=== PATIENT | female | born 1990 | race Caucasian/White ===

== ENCOUNTER 2019-12-29 21:59 | Emergency (ER) | payer SELFPAY ==
[~2019-12-29] VITALS: Ht 177.8 cm; Wt 120.0 kg
[2019-12-29 22:11] VITALS: BP 136/80
[2019-12-29] MEDS ORDERED: KETOROLAC 30MG/ML VIAL IV STA (23:21)
[2019-12-29] MEDS ORDERED: ONDANSETRON HCL 4MG/2ML INJ IV STA (23:21)
[2019-12-29] MEDS ORDERED: SODIUM CHLORIDE 0.9% 1,000 ML IV ONE (23:21)
[2019-12-30 01:04] LABS: BASOPHILS % 0.1 % (0.0-2.0); HEMATOCRIT. 36.4 % (36.0-48.0); HEMOGLOBIN. 12.1 g/dL (12.0-16.0); LYMPHOCYTES % 19.3 % (20.0-50.0); MEAN CORPUSCULAR HEMOGLOBIN 24.5 pg (28.0-32.0); MEAN CORPUSCULAR VOLUME 73.9 fL (81.0-99.0); MEAN PLATELET VOLUME 6.9 fl (7.4-10.4); MONOCYTES % 2.4 % (2.0-8.0); NEUTROPHILS % 78.2 % (40.0-76.0); PLATELET 445 x1000/uL (130-400); RED BLOOD CELL COUNT 4.92 mill/uL (4.2-5.4); RED CELL DISTRIBUTION WIDTH 16.1 % (11.6-14.6)
[2019-12-30 01:08] LABS: CHLORIDE 108 mEq/L (98-107)
[2019-12-30 01:31] LABS: CLARITY URINE CLEAR (CLEAR); COLOR URINE YELLOW (YELLOW); KETONES URINE 2+ (NEGATIVE); LEUKOCYTE ESTERASE URINE 1+ (NEGATIVE); NITRITE URINE NEGATIVE (NEGATIVE); OCCULT BLOOD URINE NEGATIVE (NEGATIVE); PH URINE 5.5 (4.5-8.0); PROTEIN URINE TRACE (NEGATIVE); SPECIFIC GRAVITY URINE 1.025 (1.005-1.030); UROBILINOGEN URINE 0.2 E.U./dL (0.2-1.0)
[2019-12-30] MEDS ORDERED: KETOROLAC 30MG/ML VIAL IM ONE (04:00)
== END 2019-12-30 04:00 | disposition home or self-care (01) ==
LOC: ER 21:59
DX: N83.202 Unspecified ovarian cyst, left side (principal); N39.0 Urinary tract infection, site not specified; R18.8 Other ascites; K76.0 Fatty (change of) liver, not elsewhere classified; R03.0 Elevated blood-pressure reading, without diagnosis of hypertension
CPT/HCPCS: 36415; 76705; 76830; 76856; 80053; 81003; 81025; 83690; 85025; 87086; 96361; 96372; 96374; 96375; 99285; J1885; J2405; J7030